=== PATIENT | female | born 1985 | race Caucasian/White ===

== ENCOUNTER 2016-08-30 08:09 | Emergency (ER) | payer BC ==
[~2016-08-30 08:09] MED LIST: AMITRIPTYLINE H50 MG PO; BENADRYL25 MG PO; CELEXA20 M1 PO; COLACE100 MG PO; CYMBALTA30 MG PO; DOCUSATE CALCI100 MG PO; IRON325 ( 65 ) PO; MOTRIN800 MG PO; NORCO 5/3251 TAB PO; PHENERGAN25 M1 PO; PREDNISONE5 MG PO; PRENAPLUS TABL1 EACH PO; SUBOXONE 8 MG-1 EACH SL; TYLENOL325 MG PO; TYLENOL500 MG PO
[2016-08-30] MEDS ORDERED: SUBOXONE 8 MG-1 EAC2 SL (08:18)
[2016-08-30] MEDS ORDERED: CELEXA20 M2 PO (08:18)
[2016-08-30] MEDS ORDERED: MINOCYCLINE HC100 M1 (08:19)
[2016-08-30] MEDS ORDERED: [UNRECOGNIZED DRUG - OTHER] (08:20)
[2016-08-30 09:16] LABS: BASO % 0.4 % (0-2); EOS % 6.5 % (0-7); EOSINOPHIL ABSOLUTE COUNT 0.7 tho/cmm (0.0-0.7); HCT-HEMATOCRIT 41.1 % (34.0-49.0); HGB-HEMOGLOBIN 13.8 gm/dl (12.0-15.5); IMMATURE GRANULOCYTES ABSOLUTE 0.03 tho/cmm (0-0.03); IMMATURE GRANULOCYTES PERCENT 0.3 % (0-0.3); LYMPH % 24.6 % (20-45); LYMPH ABSOLUTE COUNT 2.5 tho/cmm (0.8-4.5); MCH (MEAN CORPUSCULAR HGB) 28.6 pg (28.0-32.0); MCHC MEAN CORPUSCULAR HGB CONC 33.6 % (32.0-36.0); MCV (MEAN CELL VOLUME) 85.1 fl (82.0-96.0); MEAN PLATELET VOLUME 10.5 cmc (9.4-12.4); MONO % 5.8 % (0-12); MONOCYTE ABSOLUTE COUNT 0.6 tho/cmm (0.0-1.2); NEUTROPHIL ABSOLUTE COUNT 6.3 tho/cmm (1.6-8.0); NEUTROPHIL-AUTOMATED 6.3 tho/cmm (1.6-8.0); NEUTROPHILS % 62.4 % (40-80); PLATELET COUNT 284 tho/cmm (150-450); RED BLOOD COUNT 4.83 mil/cmm (4.00-5.20); RED CELL DISTRIBUTION WIDTH 13.1 % (12.4-16.4); WHITE BLOOD COUNT 10.1 tho/cmm (4.0-10.0)
[2016-08-30 09:27] LABS: PREGNANCY-SERUM NEGATIVE (NEGATIVE)
[2016-08-30 09:32] LABS: ANION GAP 10 mmol/L (0-20); BLOOD UREA NITROGEN 16 mg/dl (6-24); CALCIUM 9.1 mg/dl (8.5-10.5); CARBON DIOXIDE-VENOUS 27 mmol/L (22-32); CHLORIDE 109 mmol/l (96-110); CREATININE 0.93 mg/dl (0.50-1.10); GLUCOSE 87 mg/dL (70-110); POTASSIUM 4.1 mmol/L (3.7-5.1); SODIUM 142 mmol/L (135-145); eGFR VALUE FOR BLACK >90 mL/Min
[2016-08-30] MEDS ORDERED: PREDNISONE50 M1 PO (11:19)
[2016-08-30] MEDS ORDERED: PEPCID40 M1 PO (11:19)
[2016-08-30] MEDS ORDERED: ZYRTEC10 M7 PO (11:19)
== END 2016-08-30 11:24 ==
LOC: EDMED 08:09
PROVIDERS: Emergency Medicine
DX: R06.00 Dyspnea, unspecified (principal); T78.1XXA Other adverse food reactions, not elsewhere classified, initial encounter; F17.210 Nicotine dependence, cigarettes, uncomplicated; F32.9 Major depressive disorder, single episode, unspecified
CPT/HCPCS: J1200; J2930